=== PATIENT | female | born 1995 | race Caucasian/White ===

== ENCOUNTER 2018-04-16 12:43 | Emergency (ER) | payer OTHER ==
[2018-04-16] MEDS ORDERED: KETOROLAC 30 MG/ML INJ ONE (14:28)
[2018-04-16] MEDS ORDERED: NA CHLORIDE 0.9% 1,000 ML ONE (14:28)
[2018-04-16 14:51] LABS: Urine Bacteria 20-50 /HPF (<20); Urine Culture Reflex Order REFLEXED; Urine Mucus 2+ /HPF (NONE SEEN); Urine RBC <5 /HPF (NONE SEEN)
--- NOTE | 2018-04-16 15:11 | RAD REPORT ---
EXAM DESCRIPTION: RAD - Chest Single View - 04/16/2018 2:43 pm CLINICAL HISTORY: cough Chest pain. COMPARISON: No comparisons FINDINGS: Portable technique limits examination quality. The lungs are grossly clear. The heart is normal in size. No displaced fractures.Mild thoracic dextro scoliosis. IMPRESSION: No acute intrathoracic process suspected.
--- NOTE | 2018-04-16 15:25 | ER ---
Nurse's Notes [facility] Name: Lsia Chappell Age: 22 yrs Sex: Female : 1995 Arrival Date: 04/16/2018 Time: 12:48 Bed Treatment Private MD: None, None Diagnosis: Urinary tract infection, site not specified;Cough Presentation: 04/16 12:53 Presenting complaint: Patient states: I feel like shit, I have had a cough for about la1 month and its gotten so bad I cough up thick mucus and I have a really bad headache. Transition of care: patient was not received from another setting of care. Onset of symptoms was April 16, 2018. Risk Assessment: Do you want to hurt yourself or someone else? Patient reports no desire to harm self or others. Initial Sepsis Screen: Does the patient meet any 2 criteria? No. Patient's initial sepsis screen is negative. Does the patient have a suspected source of infection? No. Patient's initial sepsis screen is negative. Care prior to arrival: None. 12:53 Method Of Arrival: Ambulatory la1 12:53 Acuity: ANTONY 4 la1 Triage Assessment: 14:35 General: Behavior is calm, cooperative. iw 15:45 General: Appears in no apparent distress. 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 - Social history:: Smoking status: Patient/guardian denies using tobacco. - Ebola Screening: : No symptoms or risks identified at this time. Screenin:36 Abuse screen: Denies threats or abuse. Denies injuries from another. Nutritional iw screening: No deficits noted. Tuberculosis screening: No symptoms or risk factors identified. Fall Risk None identified. Assessment: 14:35 General: Appears in no apparent distress. Behavior is calm, cooperative. Pain: iw Complains of pain in head. Neuro: Level of Consciousness is awake, alert, obeys commands, Oriented to person, place, time, situation, Moves all extremities. Full function Reports headache. Cardiovascular: Capillary refill < 3 seconds in bilateral fingers Patient's skin is warm and dry. Respiratory: Respiratory effort is even, unlabored, Respiratory pattern is regular, symmetrical. Derm: Skin is intact, is healthy with good turgor. Musculoskeletal: Range of motion: intact in all extremities. 15:36 Reassessment: Patient appears in no apparent distress at this time. Patient and/or iw family updated on plan of care and expected duration. Pain level reassessed. Patient is alert, oriented x 3, equal unlabored respirations, skin warm/dry/pink. Patient states feeling better. Patient states symptoms have improved. Vital Signs: 12:54 BP 115 / 81; Pulse 115; Resp 18; Temp 97.4; Pulse Ox 98% on R/A; la1 15:36 BP 108 / 75; Pulse 79; Resp 16; Pulse Ox 100% on R/A; Pain 4/10; iw ED Course: 12:48 Patient arrived in ED. sb2 12:48 None, None is Private Physician. sb2 12:53 Elzbieta Irizarry FNP-C is [facility]. kb 12:53 Washington Chahal MD is Attending Physician. kb 12:54 Triage completed. la1 12:54 Arm band placed on right wrist. la1 13:57 Merly Marshall, RN is Primary Nurse. iw 14:00 Patient has correct armband on for positive identification. iw 14:30 Inserted saline lock: 22 gauge in right hand, using aseptic technique. iw 14:42 X-ray completed. Portable x-ray completed in exam room. Patient tolerated procedure jb2 well. 14:44 Chest Single View In Process Unspecified. EDMS 15:52 No provider procedures requiring assistance completed. IV discontinued, intact, iw bleeding controlled, No redness/swelling at site. Pressure dressing applied. Administered Medications: 14:38 Drug: TORadol 30 mg Route: IVP; Site: right hand; iw 15:45 Follow up: Response: No adverse reaction; Pain is decreased iw 14:39 Drug: NS 0.9% 1000 ml Route: IV; Rate: 1000 ml; Site: right hand; iw 15:33 Drug: Rocephin 1 grams Route: IV; Rate: calculated rate; Site: right hand; iw 15:36 Follow up: IV Status: Completed infusion iw Outcome: 15:24 Discharge ordered by MD. kb 15:52 Discharged to home ambulatory. iw 15:52 Condition: good 15:52 Discharge instructions given to patient, Instructed on discharge instructions, follow up and referral plans. medication usage, Demonstrated understanding of instructions, follow-up care, medications, Prescriptions given X 1. 15:53 Patient left the ED. iw Signatures: Dispatcher [employer] EDElzbieta Marshall, MABLE JACOBO-Angel Barnett Irene, RN Zachariah Mendes RN RN la1 Shilpa Grey2
--- NOTE | 2018-04-16 15:25 | EDPHYS ---
Physician Documentation [facility] Name: Lisa Chappell Age: 22 yrs Sex: Female : 1995 Arrival Date: 04/16/2018 Time: 12:48 Bed Treatment Private MD: None, None ED Physician Washington Chahal HPI: 04/16 15:18 This 22 yrs old Female presents to ER via Ambulatory with complaints of Flu kb Symptoms, Urinary Problem. 15:18 The patient or guardian reports cough, that is intermittent, described as moderate, kb with no sputum. Onset: The symptoms/episode began/occurred 1-2 months. Severity of symptoms: At their worst the symptoms were moderate, in the emergency department the symptoms are unchanged. Modifying factors: The symptoms are alleviated by nothing, the symptoms are aggravated by nothing. Associated signs and symptoms: The patient has no apparent associated signs or symptoms. The patient has not experienced similar symptoms in the past. The patient has not recently seen a physician. Pt reports cough for 1-2 months that has recently become productive. Also reports headache that started today and stress incontinence that has been going on since giving 9 months ago. . 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 - Social history:: Smoking status: Patient/guardian denies using tobacco. - Ebola Screening: : No symptoms or risks identified at this time. ROS: 15:15 Constitutional: Negative for fever, chills, and weight loss, ENT: Negative for injury, kb pain, and discharge, Neck: Negative for injury, pain, and swelling, Cardiovascular: Negative for chest pain, palpitations, and edema, Abdomen/GI: Negative for abdominal pain, nausea, vomiting, diarrhea, and constipation, Back: Negative for injury and pain, MS/Extremity: Negative for injury and deformity, Skin: Negative for injury, rash, and discoloration, Neuro: Negative for weakness, numbness, tingling, and seizure. +headache 15:15 Respiratory: Positive for cough, with yellow sputum, Negative for dyspnea on exertion, hemoptysis, orthopnea, pleurisy, shortness of breath, wheezing. 15:15 : Positive for urinary symptoms, urinary frequency, stress incontinence. Exam: 15:15 Constitutional: This is a well developed, well nourished patient who is awake, alert, kb and in no acute distress. Head/Face: Normocephalic, atraumatic. ENT: Nares patent. No nasal discharge, no septal abnormalities noted. Tympanic membranes are normal and external auditory canals are clear. Oropharynx with no redness, swelling, or masses, exudates, or evidence of obstruction, uvula midline. Mucous membranes moist. Neck: Trachea midline, no thyromegaly or masses palpated, and no cervical lymphadenopathy. Supple, full range of motion without nuchal rigidity, or vertebral point tenderness. No Meningismus. Chest/axilla: Normal chest wall appearance and motion. Nontender with no deformity. No lesions are appreciated. Cardiovascular: Regular rate and rhythm with a normal S1 and S2. No gallops, murmurs, or rubs. Normal PMI, no JVD. No pulse deficits. Respiratory: Lungs have equal breath sounds bilaterally, clear to auscultation and percussion. No rales, rhonchi or wheezes noted. No increased work of breathing, no retractions or nasal flaring. Abdomen/GI: Soft, non-tender, with normal bowel sounds. No distension or tympany. No guarding or rebound. No evidence of tenderness throughout. Skin: Warm, dry with normal turgor. Normal color with no rashes, no lesions, and no evidence of cellulitis. MS/ Extremity: Pulses equal, no cyanosis. Neurovascular intact. Full, normal range of motion. Neuro: Awake and alert, GCS 15, oriented to person, place, time, and situation. Cranial nerves II-XII grossly intact. Motor strength 5/5 in all extremities. Sensory grossly intact. Cerebellar exam normal. Normal gait. Vital Signs: 12:54 BP 115 / 81; Pulse 115; Resp 18; Temp 97.4; Pulse Ox 98% on R/A; la1 15:36 BP 108 / 75; Pulse 79; Resp 16; Pulse Ox 100% on R/A; Pain 4/10; iw MDM: 13:59 Patient medically screened. kb 15:15 Data reviewed: vital signs, nurses notes. Data interpreted: Pulse oximetry: on room air kb is 98 %. Interpretation: normal. 15:17 Counseling: I had a detailed discussion with the patient and/or guardian regarding: the kb historical points, exam findings, and any diagnostic results supporting the discharge/admit diagnosis, lab results, radiology results, the need for outpatient follow up, a family practitioner, to return to the emergency department if symptoms worsen or persist or if there are any questions or concerns that arise at home. 15:22 ED course: Pt educated on pelvic floor exercises and need for follow up with [employer]MM[employer] [facility] or kb urogyn.. 04/16 12:55 Order name: Flu; Complete Time: 13:49 la1 04/16 12:55 Order name: Strep; Complete Time: 13:49 la1 04/16 13:43 Order name: Throat Culture EDIN 04/16 14:17 Order name: Urine Dipstick--Ancillary (enter results) 04/16 14:17 Order name: Urine --Ancillary (enter results) 04/16 12:55 Order name: Urine Dipstick-Ancillary (obtain specimen); Complete Time: 14:07 la1 04/16 14:41 Order name: Urine Microscopic Only; Complete Time: 15:01 EDIN 04/16 14:42 Order name: Chest Single View; Complete Time: 15:15 EDIN 04/16 14:54 Order name: Urine Culture [facility] 04/16 12:55 Order name: Urine Test (obtain specimen); Complete Time: 14:07 la1 04/16 14:15 Order name: IV Start; Complete Time: 14:18 kb Administered Medications: 14:38 Drug: TORadol 30 mg Route: IVP; Site: right hand; iw 15:45 Follow up: Response: No adverse reaction; Pain is decreased iw 14:39 Drug: NS 0.9% 1000 ml Route: IV; Rate: 1000 ml; Site: right hand; iw 15:33 Drug: Rocephin 1 grams Route: IV; Rate: calculated rate; Site: right hand; iw 15:36 Follow up: IV Status: Completed infusion iw Disposition: 18:01 Co-signature as Attending Physician, Washington Chahal MD. rn Disposition: 04/16/18 15:24 Discharged to Home. Impression: Urinary tract infection, site not specified, Cough. - Condition is Stable. - Discharge Instructions: Urinary Tract Infection, Adult, Yvae-by-Ouri, Cough, Adult, [id number]. - Prescriptions for Augmentin 875- 125 mg Oral Tablet - take 1 tablet by ORAL route every 12 hours for 7 days; 14 tablet. - Medication Reconciliation Form, Thank You Letter, Antibiotic Education, Prescription Opioid Use, Work release form form. - Follow up: Emergency Department; When: As needed; Reason: Worsening of condition. Follow up: Private Physician; When: 2 - 3 days; Reason: Recheck today's complaints, Continuance of care, Re-evaluation by your physician. Signatures: Dispatcher [employer] [facility] Elzbieta Irizarry, ODALIS-Jayde LABORER PRESTRESSED CONCRETE-Merly Carroll RN Washington Moses MD MD rn Attema, Zachariah RN RN la1 Corrections: (The following items were deleted from the chart) 15:06 15:02 Chest Single View+RAD.[email or web address].[email or web address] ordered. [facility] 15:18 15:15 Constitutional: Negative for fever, chills, and weight loss, ENT: Negative for kb injury, pain, and discharge, Neck: Negative for injury, pain, and swelling, Cardiovascular: Negative for chest pain, palpitations, and edema, Abdomen/GI: Negative for abdominal pain, nausea, vomiting, diarrhea, and constipation, Back: Negative for injury and pain, MS/Extremity: Negative for injury and deformity, Skin: Negative for injury, rash, and discoloration, Neuro: Negative for headache, weakness, numbness, tingling, and seizure, kb 15:53 15:24 04/16/2018 15:24 Discharged to Home. Impression: Urinary tract infection, site iw not specified; Cough. Condition is Stable. Forms are Medication Reconciliation Form, Thank You Letter, Antibiotic Education, Prescription Opioid Use. Follow up: Emergency Department; When: As needed; Reason: Worsening of condition. Follow up: Private Physician; When: 2 - 3 days; Reason: Recheck today's complaints, Continuance of care, Re-evaluation by your physician. kb
[2018-04-16] MEDS ORDERED: CEFTRIAXONE/SWI 1gm 1 GM/10 ML SYR ONE (15:35)
[2018-04-16 19:30] LABS: Urine Blood NEGATIVE (NEG); Urine Glucose NEGATIVE (NEG); Urine Protein 1+ (NEG); Urine Specific Gravity 1.025 (1.005-1.030)
== END 2018-04-16 15:53 | disposition home or self-care (01) ==
LOC: ER 12:43
DX: N39.0 Urinary tract infection, site not specified (principal); R05 Cough
CPT/HCPCS: 71045; 81003; 81015; 81025; 87070; 87081; 87086; 87088; 87804; 96374; 96375; 99284; J0696; J7030

== ENCOUNTER 2018-07-22 10:45 | Emergency (ER) | payer OTHER ==
--- NOTE | 2018-07-22 12:05 | RAD REPORT ---
EXAM DESCRIPTION: RAD - Chest Pa And Lat (2 Views) - 07/22/2018 11:58 am CLINICAL HISTORY: productive cough, fever Chest pain. COMPARISON: Chest Single View dated 04/16/2018 FINDINGS: Mild reticular opacities are noted in the right middle lobe, suspicious for developing inf iltrate/pneumonia. The heart is normal in size. Mild dextroscoliosis of thoracic spine. IMPRESSION: Ill-defined reticular opacities in the right middle lobe, suspicious for developing pneu monia.
--- NOTE | 2018-07-22 12:33 | EDPHYS ---
Physician Documentation [facility] Name: Lisa Chappell Age: 23 yrs Sex: Female : 1995 Arrival Date: 07/22/2018 Time: 10:48 Bed 11 Private MD: ED Physician Ishmael Qureshi HPI: 07/22 11:28 This 23 yrs old Female presents to ER via Ambulatory with complaints of Flu jmm Symptoms. 11:28 The patient or guardian reports cough. Onset: The symptoms/episode began/occurred jmm gradually. Patient complaints of sore throat, productive cough worsening over the past 2 weeks. Patient states she developed a fever and chills last night. . Historical: - Allergies: 11:15 No Known Allergies; dm5 - Home Meds: 11:15 None [Active]; dm5 - PMHx: 11:15 None; dm5 - PSHx: 11:15 None; dm5 - Immunization history:: Adult Immunizations not up to date. - Social history:: Smoking status: Patient/guardian denies using tobacco. - Ebola Screening: : Patient negative for fever greater than or equal to 101.5 degrees Fahrenheit, and additional compatible Ebola Virus Disease symptoms Patient denies exposure to infectious person Patient denies travel to an Ebola-affected area in the 21 days before illness onset No symptoms or risks identified at this time. ROS: 11:28 Constitutional: Positive for fever. jmm 11:28 ENT: Positive for sore throat. 11:28 Respiratory: Positive for cough. 11:28 All other systems are negative. Exam: 11:28 Constitutional: This is a well developed, well nourished patient who is awake, alert, jmm and in no acute distress. Head/Face: atraumatic. Eyes: EOMI, no conjunctival erythema appreciated 11:28 Neck: Trachea midline, Supple Chest/axilla: Normal chest wall appearance and motion. 11:28 ENT: Posterior pharynx: erythema, that is moderate. 11:28 Cardiovascular: Rate: normal, Rhythm: regular, Pulses: no pulse deficits are appreciated. 11:28 Respiratory: the patient does not display signs of respiratory distress, Respirations: normal, Breath sounds: are clear throughout. 11:28 Abdomen/GI: Inspection: abdomen appears normal, Bowel sounds: normal. 11:28 Back: ROM is normal. 11:28 Musculoskeletal/extremity: ROM: intact in all extremities. 11:28 Skin: Appearance: Color: normal in color. 11:28 Neuro: Orientation: is normal, Mentation: is normal, Memory: is normal. 11:28 Psych: Behavior/mood is pleasant, cooperative. Vital Signs: 11:13 BP 109 / 81; Pulse 104; Resp 22; Temp 98.3; Pulse Ox 98% on R/A; Weight 77.11 kg; dm5 Height 5 ft. 2 in. (157.48 cm); Pain 6/10; 11:13 Body Mass Index 31.09 (77.11 kg, 157.48 cm) dm5 MDM: 11:[address] [facility] 12:31 Data reviewed: vital signs, nurses notes. Counseling: I had a detailed discussion with belén the patient and/or guardian regarding: the historical points, exam findings, and any diagnostic results supporting the discharge/admit diagnosis, lab results, radiology results, the need for outpatient follow up, to return to the emergency department if symptoms worsen or persist or if there are any questions or concerns that arise at home. ED course: Patient is alert and non toxic in appearance in the ED. No signs of resp distress. Patient will be prescribed tamiflu and azithromycin. Patient is given strict return precautions. Patient understood and agrees with the plan of care. . 07/22 11:28 Order name: Flu; Complete Time: 12:31 [facility] 07/22 11:28 Order name: Strep; Complete Time: 12:17 [facility] 07/22 11:30 Order name: Chest Pa And Lat (2 Views) XRAY; Complete Time: 12:12 [facility] 07/22 12:16 Order name: Throat Culture EDMS Administered Medications: No medications were administered Disposition: 15:15 Co-signature as Attending Physician, Ishmael Qureshi MD I agree with the assessment and [facility] plan of care. Disposition: 07/22/18 12:32 Discharged to Home. Impression: Pneumonia, Influenza due to certain identified influenza viruses. - Condition is Stable. - Discharge Instructions: Influenza, Adult, Community-Acquired Pneumonia, Adult. - Prescriptions for Tamiflu 75 mg Oral Capsule - take 1 tablet by ORAL route every 12 hours for 5 days; 10 tablet. Zithromax Z- Rafa 250 mg Oral Tablet - take 1 tablet by ORAL route as directed for 5 days Day 1 - take two (2) tablets one time. Day 2, 3, 4 , 5 take one (1) tablet once daily.; 6 tablet. - Work release form, Medication Reconciliation Form, Thank You Letter, Antibiotic Education, Prescription Opioid Use form. - Follow up: Private Physician; When: 2 - 3 days; Reason: Recheck today's complaints, Continuance of care, Re-evaluation by your physician. Signatures: Dispatcher [employer] Bonnie Conrad, TOM SANTOS dm5 Ishmael Qureshi MD MD cha Mickail, Joel, PA PA jmm Corrections: (The following items were deleted from the chart) 12:49 12:32 07/22/2018 12:32 Discharged to Home. Impression: Pneumonia; Influenza due to dm5 certain identified influenza viruses. Condition is Stable. Forms are Medication Reconciliation Form, Thank You Letter, Antibiotic Education, Prescription Opioid Use. Follow up: Private Physician; When: 2 - 3 days; Reason: Recheck today's complaints, Continuance of care, Re-evaluation by your physician. belén
--- NOTE | 2018-07-22 12:33 | ER ---
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 Transition of care: patient was not received from another setting of care. Onset of symptoms was July 22, 2018. Risk Assessment: Do you want to hurt yourself or someone else? Patient reports no desire to harm self or others. Initial Sepsis Screen: Does the patient meet any 2 criteria? No. Patient's initial sepsis screen is negative. Does the patient have a suspected source of infection? No. Patient's initial sepsis screen is negative. Care prior to arrival: None. 11:17 Method Of Arrival: Ambulatory 5 11:17 Acuity: ANTONY 4 dm5 Historical: - Allergies: 11:15 No Known Allergies; dm5 - Home Meds: 11:15 None [Active]; dm5 - PMHx: 11:15 None; dm5 - PSHx: 11:15 None; dm5 - Immunization history:: Adult Immunizations not up to date. - Social history:: Smoking status: Patient/guardian denies using tobacco. - Ebola Screening: : Patient negative for fever greater than or equal to 101.5 degrees Fahrenheit, and additional compatible Ebola Virus Disease symptoms Patient denies exposure to infectious person Patient denies travel to an Ebola-affected area in the 21 days before illness onset No symptoms or risks identified at this time. Screenin:34 Abuse screen: Denies threats or abuse. Denies injuries from another. Nutritional dm5 screening: No deficits noted. Tuberculosis screening: No symptoms or risk factors identified. Fall Risk None identified. Assessment: 11:34 General: Appears in no apparent distress. comfortable, Behavior is calm, cooperative. dm5 Pain: Complains of pain in throat Quality of pain is described as sore throat Pain began 2-3 days ago. Neuro: Level of Consciousness is awake, alert, obeys commands, Oriented to person, place, time, situation. Respiratory: Airway is patent Respiratory effort is even, unlabored, relaxed, Respiratory pattern is regular, symmetrical. Derm: Skin is pink, warm \T\ dry. Vital Signs: 11:13 BP 109 / 81; Pulse 104; Resp 22; Temp 98.3; Pulse Ox 98% on R/A; Weight 77.11 kg; dm5 Height 5 ft. 2 in. (157.48 cm); Pain 6/10; 11:13 Body Mass Index 31.09 (77.11 kg, 157.48 cm) dm5 ED Course: 10:48 Patient arrived in ED. as 11:15 Arm band placed on. dm5 11:19 Triage completed. dm5 11:24 Rafael Singh PA is PHCP. jmm 11:24 Ishmael Qureshi MD is Attending Physician. jmm 11:34 Patient has correct armband on for positive identification. dm5 11:34 No provider procedures requiring assistance completed. dm5 11:59 Chest Pa And Lat (2 Views) XRAY In Process Unspecified. EDMS Administered Medications: No medications were administered Outcome: 12:32 Discharge ordered by . jmm 12:49 Patient left the ED. dm5 Signatures: Dispatcher [employer] EDMS Bonnie Madsen, RN RN dm5 Rafael Singh PA PA Delia Crow as
== END 2018-07-22 12:49 | disposition home or self-care (01) ==
LOC: ER 10:45
DX: J18.9 Pneumonia, unspecified organism (principal); J10.1 Influenza due to other identified influenza virus with other respiratory manifestations
CPT/HCPCS: 71046; 87070; 87081; 87804; 99282

== ENCOUNTER 2018-09-24 20:15 | Emergency (ER) | payer OTHER ==
[2018-09-24] MEDS ORDERED: IBUPROFEN 400 MG TAB ONE (21:08)
[2018-09-24 22:11] LABS: Urine Blood TRACE (NEG); Urine Glucose NEGATIVE (NEG); Urine Protein NEGATIVE (NEG); Urine Specific Gravity 1.015 (1.005-1.030)
[2018-09-24 22:12] LABS: Absolute Monocytes 0.8 K/uL (0.1-1.3); Absolute Neutrophil 9.5 K/uL (1.8-8.0); Basophils % 0.4 % (0-1.3); Eosinophils % 0.1 % (0-4.4); Hematocrit 42.2 % (36.0-45.0); Lymphocytes % 8.4 % (15.3-44.8); Monocytes % 6.7 % (3.3-12.3); RBC Red Blood Cell Count 4.66 M/uL (3.86-4.86)
[2018-09-24 22:29] LABS: ALT/SGPT 44 U/L (12-78); AST/SGOT 35 U/L (15-37); Albumin 4.5 g/dL (3.4-5.0); Alkaline Phosphatase 126 U/L (45-117); BUN Blood Urea Nitrogen 12 mg/dL (7-18); Bicarbonate 25 mmol/L (21-32); Bilirubin Total 0.4 mg/dL (0.2-1.0); Glucose Level 92 mg/dL (74-106); Potassium 3.3 mmol/L (3.5-5.1); Protein, Total 8.4 g/dL (6.4-8.2); Sodium Level 138 mmol/L (136-145)
--- NOTE | 2018-09-24 22:55 | RAD REPORT ---
EXAM DESCRIPTION: RAD - Chest Pa And Lat (2 Views) - 09/24/2018 9:38 pm CLINICAL HISTORY: Fever;SOB Chest pain. COMPARISON: <Comparisons> FINDINGS: The lungs are clear. The heart is normal in size. No displaced fractures. IMPRESSION: No acute or concerning finding suspected.
--- NOTE | 2018-09-24 22:58 | ER ---
Nurse's Notes [facility] Name: Lisa Chappell Age: 23 yrs Sex: Female : 1995 Arrival Date: 09/24/2018 Time: 20:16 Bed 26 Private MD: Diagnosis: Acute pharyngitis Presentation: 09/24 20:34 Presenting complaint: Patient states: Around 2pm I started to feel really tired and my ed1 tonsil feels swollen and I am running a high fever. Transition of care: patient was not received from another setting of care. Onset of symptoms was September 24, 2018. Risk Assessment: Do you want to hurt yourself or someone else? Patient reports no desire to harm self or others. Initial Sepsis Screen: Does the patient meet any 2 criteria? No. Patient's initial sepsis screen is negative. Does the patient have a suspected source of infection? No. Patient's initial sepsis screen is negative. Care prior to arrival: Medication(s) given: Motrin. 20:34 Method Of Arrival: Ambulatory ed1 20:34 Acuity: ANTONY 3 ed1 Triage Assessment: 20:35 General: Appears uncomfortable, Behavior is calm, cooperative. Pain: Complains of pain ed1 in right eye and left eye Pain currently is 10 out of 10 on a pain scale. 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 - Social history:: Smoking status: Patient uses tobacco products, denies chronic smoking, but will smoke occasionally. - Ebola Screening: : Patient negative for fever greater than or equal to 101.5 degrees Fahrenheit, and additional compatible Ebola Virus Disease symptoms Patient denies exposure to infectious person Patient denies travel to an Ebola-affected area in the 21 days before illness onset No symptoms or risks identified at this time. Screenin:45 Abuse screen: Denies threats or abuse. Denies injuries from another. Nutritional ca1 screening: No deficits noted. Tuberculosis screening: No symptoms or risk factors identified. Fall Risk None identified. Assessment: 20:45 General: Appears in no apparent distress. comfortable, Behavior is calm, cooperative, ca1 appropriate for age, Reports fever for 0-12 hours. Pain: Denies pain. Neuro: Level of Consciousness is awake, alert, obeys commands, Oriented to person, place, time, situation. Cardiovascular: Heart tones S1 S2 present Capillary refill < 3 seconds Patient's skin is warm and dry. Respiratory: Airway is patent Respiratory effort is even, unlabored, Respiratory pattern is regular, symmetrical, Breath sounds are clear bilaterally. GI: Abdomen is round non-distended, Bowel sounds present X 4 quads. Abd is soft and non tender X 4 quads. : No deficits noted. No signs and/or symptoms were reported regarding the genitourinary system. EENT: Throat is pink. Derm: Skin is intact, is healthy with good turgor, Skin is pink, warm \T\ dry. Musculoskeletal: Circulation, motion, and sensation intact. Capillary refill < 3 seconds. 22:03 Reassessment: Patient appears in no apparent distress at this time. Patient and/or ca1 family updated on plan of care and expected duration. Pain level reassessed. Patient is alert, oriented x 3, equal unlabored respirations, skin warm/dry/pink. 23:16 Reassessment: Patient appears in no apparent distress at this time. Patient is alert, ca1 oriented x 3, equal unlabored respirations, skin warm/dry/pink. Patient states feeling better. Vital Signs: 20:35 BP 125 / 106; Pulse 124; Resp 24; Temp 101.5; Pulse Ox 99% on R/A; Weight 75.75 kg; ed1 Height 5 ft. 2 in. (157.48 cm); Pain 10/10; 20:48 BP 122 / 62; Pulse 137; Resp 18 S; Temp 102.4(O); Pulse Ox 100% on R/A; ca1 22:03 BP 103 / 67; Pulse 114; Resp 18 S; Temp 101(O); Pulse Ox 97% on R/A; ca1 23:00 BP 115 / 68; Pulse 109; Resp 17 S; Temp 99.9(O); Pulse Ox 97% on R/A; ca1 20:35 Body Mass Index 30.54 (75.75 kg, 157.48 cm) ed1 ED Course: 20:16 Patient arrived in ED. am2 20:33 Genesis Lainez, RN is Primary Nurse. ed1 20:35 Triage completed. ed1 20:35 Arm band placed on right wrist. ed1 20:45 Patient has correct armband on for positive identification. Placed in gown. Bed in low ca1 position. Call light in reach. Side rails up X 1. Pulse ox on. NIBP on. 20:58 Wilner Rodríguez NP is PHCP. pm1 20:58 Ishmael Qureshi MD is Attending Physician. pm1 21:35 Chest Pa And Lat (2 Views) XRAY In Process Unspecified. EDMS 21:51 No provider procedures requiring assistance completed. Inserted saline lock: 22 gauge mg2 in left hand, using aseptic technique. Blood collected. 23:18 IV discontinued, intact, bleeding controlled, No redness/swelling at site. Pressure ca1 dressing applied. Administered Medications: 20:57 Drug: Motrin 800 mg Route: PO; ca1 23:16 Follow up: Response: No adverse reaction; Temperature is decreased ca1 Outcome: 22:58 Discharge ordered by MD. pm1 23:18 Discharged to home ambulatory. ca1 23:18 Condition: stable 23:18 Discharge instructions given to patient, Instructed on discharge instructions, follow up and referral plans. Demonstrated understanding of instructions, follow-up care. 23:18 Patient left the ED. ca1 Signatures: Dispatcher [employer] EDVT Genesis Lainez, RN RN ed1 Wilner Rodríguez NP CARBONATION TESTER pm1 Deisy Quintana am2 Lexa Barba RN RN mg2 Sharron Marshall RN RN ca1 Corrections: (The following items were deleted from the chart) 20:38 20:35 BP 125 / 106; Pulse 140bpm; Resp 24bpm; Pulse Ox 99% RA; Temp 101.5F; 75.75 kg; ed1 Height 5 ft. 2 in.; BMI: 30.5; Pain 10/10; ed1
--- NOTE | 2018-09-24 22:58 | EDPHYS ---
Physician Documentation [facility] Name: Lisa Chappell Age: 23 yrs Sex: Female : 1995 Arrival Date: 09/24/2018 Time: 20:16 Bed 26 Private MD: ED Physician Ishmael Qureshi HPI: 09/24 21:05 This 23 yrs old Female presents to ER via Ambulatory with complaints of pm1 Fever, Difficulty Swallowing. 21:05 The patient presents with sore throat. The patient describes throat pain as constant, pm1 scratchy. Onset: The symptoms/episode began/occurred today. Severity of symptoms: in the emergency department the symptoms are actually worse. Modifying factors: The symptoms are alleviated by nothing, the symptoms are aggravated by swallowing, Patient's oral intake status: good unaware of sick contact. Associated signs and symptoms: Pertinent positives: fever, shortness of breath Pertinent negatives chest pain, diarrhea, earache, vomiting. The patient has not experienced similar symptoms in the past. The patient has not recently seen a physician. 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 - Social history:: Smoking status: Patient uses tobacco products, denies chronic smoking, but will smoke occasionally. - Ebola Screening: : Patient negative for fever greater than or equal to 101.5 degrees Fahrenheit, and additional compatible Ebola Virus Disease symptoms Patient denies exposure to infectious person Patient denies travel to an Ebola-affected area in the 21 days before illness onset No symptoms or risks identified at this time. ROS: 21:05 Eyes: Negative for injury, pain, redness, and discharge. pm1 21:05 Neck: Negative for injury, pain, and swelling, Cardiovascular: Negative for chest pain, palpitations, and edema, Respiratory: Negative for shortness of breath, cough, wheezing, and pleuritic chest pain, Abdomen/GI: Negative for abdominal pain, nausea, vomiting, diarrhea, and constipation, Back: Negative for injury and pain, MS/Extremity: Negative for injury and deformity, Skin: Negative for injury, rash, and discoloration, Neuro: Negative for headache, weakness, numbness, tingling, and seizure. 21:05 Constitutional: Positive for body aches, fever. 21:05 ENT: Positive for difficulty swallowing, sore throat, Negative for sinus congestion, sinus pain, difficulty handling secretions, hoarseness. Exam: 21:05 Constitutional: This is a well developed, well nourished patient who is awake, alert, pm1 and in no acute distress. Head/Face: Normocephalic, atraumatic. Eyes: Pupils equal round and reactive to light, extra-ocular motions intact. Lids and lashes normal. Conjunctiva and sclera are non-icteric and not injected. Cornea within normal limits. Periorbital areas with no swelling, redness, or edema. 21:05 Neck: Trachea midline, no thyromegaly or masses palpated, and no cervical lymphadenopathy. Supple, full range of motion without nuchal rigidity, or vertebral point tenderness. No Meningismus. Chest/axilla: Normal chest wall appearance and motion. Nontender with no deformity. No lesions are appreciated. Cardiovascular: Regular rate and rhythm with a normal S1 and S2. No gallops, murmurs, or rubs. Normal PMI, no JVD. No pulse deficits. Respiratory: Lungs have equal breath sounds bilaterally, clear to auscultation and percussion. No rales, rhonchi or wheezes noted. No increased work of breathing, no retractions or nasal flaring. Abdomen/GI: Soft, non-tender, with normal bowel sounds. No distension or tympany. No guarding or rebound. No evidence of tenderness throughout. Back: No spinal tenderness. No costovertebral tenderness. Full range of motion. Skin: Warm, dry with normal turgor. Normal color with no rashes, no lesions, and no evidence of cellulitis. MS/ Extremity: Pulses equal, no cyanosis. Neurovascular intact. Full, normal range of motion. 21:05 ENT: External ear(s): are unremarkable, Ear canal(s): are normal, TM's: are normal, Nose: is normal, Mouth: is normal, Posterior pharynx: is normal, airway is patent, no peritonsilar mass, Tonsils: bilaterally enlarged, with erythema, no exudate, no ulcerations, erythema, that is mild, exudate, is not appreciated, peritonsillar mass, is not appreciated. 21:05 Neuro: Orientation: is normal, Motor: is normal, no acute changes, moves all fours, Gait: is steady, at a normal pace, without difficulty. Vital Signs: 20:35 BP 125 / 106; Pulse 124; Resp 24; Temp 101.5; Pulse Ox 99% on R/A; Weight 75.75 kg; ed1 Height 5 ft. 2 in. (157.48 cm); Pain 10/10; 20:48 BP 122 / 62; Pulse 137; Resp 18 S; Temp 102.4(O); Pulse Ox 100% on R/A; ca1 22:03 BP 103 / 67; Pulse 114; Resp 18 S; Temp 101(O); Pulse Ox 97% on R/A; ca1 23:00 BP 115 / 68; Pulse 109; Resp 17 S; Temp 99.9(O); Pulse Ox 97% on R/A; ca1 20:35 Body Mass Index 30.54 (75.75 kg, 157.48 cm) ed1 MDM: 21:12 Patient medically screened. pm1 22:57 Data reviewed: vital signs. Data interpreted: Pulse oximetry: on room air is 97 %. pm1 Interpretation: normal. Counseling: I had a detailed discussion with the patient and/or guardian regarding: the historical points, exam findings, and any diagnostic results supporting the discharge/admit diagnosis, lab results, radiology results, the need for outpatient follow up, to return to the emergency department if symptoms worsen or persist or if there are any questions or concerns that arise at home. 09/24 20:58 Order name: Strep; Complete Time: 22:18 pm1 09/24 21:03 Order name: Flu; Complete Time: 22:18 pm1 09/24 21:03 Order name: CBC with Diff; Complete Time: 22:14 pm1 09/24 21:03 Order name: CMP; Complete Time: 22:39 pm1 09/24 21:55 Order name: Urine Dipstick--Ancillary (enter results) [facility] 09/24 21:55 Order name: Urine --Ancillary (enter results); Complete Time: 22:14 [facility] 09/24 21:03 Order name: Chest Pa And Lat (2 Views) XRAY; Complete Time: 22:57 pm1 09/24 21:03 Order name: Urine Dipstick-Ancillary (obtain specimen); Complete Time: 21:38 pm1 09/24 21:03 Order name: Urine Test (obtain specimen); Complete Time: 21:38 pm1 09/24 21:56 Order name: Urine Dipstick-Ancillary; Complete Time: 22:14 EDMS 09/24 22:19 Order name: Throat Culture EDMS Administered Medications: 20:57 Drug: Motrin 800 mg Route: PO; ca1 23:16 Follow up: Response: No adverse reaction; Temperature is decreased ca1 Disposition: 09/25 07:22 Co-signature as Attending Physician, Ishmael Qureshi MD I agree with the assessment and jey plan of care. Disposition: 09/24/18 22:58 Discharged to Home. Impression: Acute pharyngitis. - Condition is Stable. - Discharge Instructions: Pharyngitis. - Work release form, Medication Reconciliation Form, Thank You Letter, Antibiotic Education, Prescription Opioid Use form. - Follow up: Emergency Department; When: As needed; Reason: Worsening of condition. Follow up: Private Physician; When: 2 - 3 days; Reason: Recheck today's complaints, Continuance of care, Re-evaluation by your physician. - Problem is new. - Symptoms have improved. Signatures: Dispatcher [employer] EDUT Ishmael Qureshi MD MD cha Riggs, Erika, RN RN ed1 Wilner Rodríguez, GAS METER REPAIRER GAS METER REPAIRER pm1 Sharron Marshall RN RN ca1 Corrections: (The following items were deleted from the chart) 09/24 23:18 22:58 09/24/2018 22:58 Discharged to Home. Impression: Acute pharyngitis. Condition is ca1 Stable. Forms are Medication Reconciliation Form, Thank You Letter, Antibiotic Education, Prescription Opioid Use. Follow up: Emergency Department; When: As needed; Reason: Worsening of condition. Follow up: Private Physician; When: 2 - 3 days; Reason: Recheck today's complaints, Continuance of care, Re-evaluation by your physician. Problem is new. Symptoms have improved. pm1
== END 2018-09-24 23:18 | disposition home or self-care (01) ==
LOC: ER 20:15
DX: J02.9 Acute pharyngitis, unspecified (principal); Z72.0 Tobacco use
CPT/HCPCS: 36415; 71046; 80053; 81003; 81025; 85025; 87070; 87081; 87804; 99284